=== PATIENT | female | born 1960 ===

== ENCOUNTER 2017-09-08 17:52 | Emergency (ER) | payer OTHER ==
[2017-09-08 17:52] VITALS: BMI 28.5
[2017-09-08 18:01] VITALS: BP 150/78; PULSE 64; RESP 18; TEMP 98.4; O2SAT 99
--- NOTE | 2017-09-08 18:17 | ED PDOC ---
HPI: General Adult Time Seen by Provider: 09/08/17 18:05 Chief Complaint (Nursing): Upper Extremity Problem/Injury Chief Complaint (Provider): Neck and Right breast pain History Per: Patient History/Exam Limitations: no limitations Onset/Duration Of Symptoms: Days Current Symptoms Are (Timing): Still Present Additional Complaint(s): 57 y/o female presents to the emergency department with right breast pain and redness to right nipple region for 5 days. Patient denies any active drainage or bleeding. No fever or chills. She also noticed mild pain to left side of neck which is relieved by Motrin. Patient denies trauma to neck. No associated headache, chest pain, shortness of breath, dizziness or vision changes. No fever or chills. PMD: [facility] Past Medical History Reviewed: Historical Data, Nursing Documentation, Vital Signs Vital Signs: Last Vital Signs Temp 98.4 F 09/08/17 17:59 Pulse 64 09/08/17 17:59 Resp 18 09/08/17 17:59 BP 150/78 09/08/17 17:59 Pulse Ox 99 09/08/17 18:42 - Medical History PMH: Hypercholesterolemia - Family History Family History: States: No Known Family Hx - Living Arrangements Living Arrangements: With Family - Social History Current smoker - smoking cessation education provided: No Alcohol: None Drugs: Denies - Home Medications Home Medications: Ambulatory Orders Medication Instructions Recorded Docusate [Colace] 100 mg PO TID PRN 08/10/15 Multivitamin [Ruby-Plus G] 1 cap PO DAILY 08/10/15 [id number]-2-[id number] Ethyl Esters [OMEGA 3] 1 / PO DAILY 08/10/15 Tramadol Hydrochloride [Tramadol] 100 mg PO Q6 PRN 08/10/15 Azithromycin [Zithromax] 250 mg PO DAILY #6 tab 01/08/17 Guaifenesin/Dextromethorphan 1 each PO Q12H #10 tab.er.12h 01/08/17 [Guaifenesin-Dm ER 1,200-60 mg] Ibuprofen [Motrin] 600 mg PO Q6 PRN #15 tab 09/08/17 Sulfamethoxazole/Trimethoprim 1 tab PO BID #14 tab 09/08/17 [Bactrim DS 800 mg-160 mg] - Allergies Allergies/Adverse Reactions: Allergies Allergy/AdvReac Type Severity Reaction Status Date / Time morphine Allergy DIZZINESS Verified 01/08/17 19:29 Review of Systems ROS Statement: Except As Marked, All Systems Reviewed And Found Negative Cardiovascular: Negative for: Chest Pain Musculoskeletal: Positive for: Neck Pain (denies any trauma, nonradiating pain) Skin: Positive for: Other (redness and pain to right breast) Neurological: Negative for: Headache, Dizziness Physical Exam - Reviewed Nursing Documentation Reviewed: Yes Vital Signs Reviewed: Yes - Physical Exam Appears: Positive for: Well, Non-toxic, No Acute Distress Head Exam: Positive for: ATRAUMATIC, NORMAL INSPECTION, NORMOCEPHALIC Skin: Positive for: Normal Color, Warm, Dry. Negative for: Rash Eye Exam: Positive for: Normal appearance Neck: Positive for: Normal, Pain On Movement Of Neck (slight pain with movement of neck, no step off or midline tenderness) Cardiovascular/Chest: Positive for: Other (Localized cellulitis to the right breast surrounding areola, no active drainage, no bleeding, no abscess or palpable masses, left breast wnl) Back: Positive for: Normal Inspection Extremity: Positive for: Normal ROM Neurologic/Psych: Positive for: Alert, Oriented (x3) - ECG O2 Sat by Pulse Oximetry: 99 (RA) Pulse Ox Interpretation: Normal Medical Decision Making Medical Decision Making: Time: 1810 Initial Impression: Neck pain, right breast cellulitis Initial Plan: --Motrin 600 mg PO Patient reports improvement in neck pain after Motrin dose given. Prescription given for Motrin and Bactrim. Patient has appointment this coming with clinic for follow-up. Scribe Attestation: Documented by Raissa Yee, acting as a scribe for Kaykay Hou PA-C. Provider Scribe Attestation: All medical record entries made by the Scribe were at my direction and personally dictated by me. I have reviewed the chart and agree that the record accurately reflects my personal performance of the history, physical exam, medical decision making, and the department course for this patient. I have also personally directed, reviewed, and agree with the discharge instructions and disposition. Disposition - Clinical Impression Clinical Impression: Neck pain, Cellulitis of breast - Patient ED Disposition Is Patient to be Admitted: No Counseled Patient/Family Regarding: Diagnosis, Need For Followup, Rx Given - Disposition Referrals: [facility] [Outside] Disposition: Routine/Home Disposition Time: 18:49 Condition: STABLE Additional Instructions: Take rx meds as directed. Follow up with clinic. Prescriptions: Ibuprofen [Motrin] 600 mg PO Q6 PRN #15 tab PRN Reason: Pain, Moderate (4-7) Sulfamethoxazole/Trimethoprim [Bactrim DS 800 mg-160 mg] 1 tab PO BID #14 tab Instructions: Cellulitis (ED), Cervical Sprain (ED) Forms: [employer] (Bulgarian) Print Language: TAJIK
== END 2017-09-08 19:00 | disposition home or self-care (01) ==
LOC: H.ER 17:52
DX: N61.0 Mastitis without abscess (principal); M54.2 Cervicalgia

== ENCOUNTER 2018-02-04 15:34 | Emergency (ER) | payer SELFPAY ==
[2018-02-04 15:34] VITALS: BMI 28.5
[2018-02-04 15:42] VITALS: BP 140/63; PULSE 70; RESP 18; TEMP 98.4; O2SAT 98
--- NOTE | 2018-02-04 16:35 | ED PDOC ---
HPI: CCC, URI, Sore Throat Time Seen by Provider: 02/04/18 15:44 Chief Complaint (Nursing): Flu-like Symptoms Chief Complaint (Provider): Throat pain, eye redness, cough History Per: Patient History/Exam Limitations: no limitations Have you had recent travel within the past 21 days to any of the following countries: [place], [place], [place] or [place]?: No Current Symptoms Are (Timing): Still Present Location Of Pain: Throat Sick Contacts (Context): Family Member(s) Associated Symptoms: Sore Throat, Cough Additional Complaint(s): 57 y/o female, presents to ER for evaluation of cough, throat pain and redness to bilateral eyes since yesterday. She states she had yellow discharge from left eye yesterday. She denies any fever or chills. Of note, patient states she had had positive sick contact at home. She has no other complaints. PCP: Adama Martin Past Medical History Reviewed: Historical Data, Nursing Documentation, Vital Signs Vital Signs: Last Vital Signs Temp 98.4 F 02/04/18 15:40 Pulse 70 02/04/18 15:40 Resp 18 02/04/18 15:40 BP 140/63 02/04/18 15:40 Pulse Ox 98 02/04/18 16:40 - Medical History PMH: Anemia, Hypercholesterolemia - Surgical History Surgical History: No Surg Hx - Family History Family History: States: No Known Family Hx - Living Arrangements Living Arrangements: With Family - Social History Current smoker - smoking cessation education provided: No Alcohol: None Drugs: Denies - Home Medications Home Medications: Ambulatory Orders Medication Instructions Recorded Docusate [Colace] 100 mg PO TID PRN 08/10/15 Multivitamin [Ruby-Plus G] 1 cap PO DAILY 08/10/15 [id number] Ethyl Esters [OMEGA 3] 1 / PO DAILY 08/10/15 Tramadol Hydrochloride [Tramadol] 100 mg PO Q6 PRN 08/10/15 Azithromycin [Zithromax] 250 mg PO DAILY #6 tab 01/08/17 Guaifenesin/Dextromethorphan 1 each PO Q12H #10 tab.er.12h 01/08/17 [Guaifenesin-Dm ER 1,200-60 mg] Ibuprofen [Motrin] 600 mg PO Q6 PRN #15 tab 09/08/17 Sulfamethoxazole/Trimethoprim 1 tab PO BID #14 tab 09/08/17 [Bactrim DS 800 mg-160 mg] Azithromycin [Zithromax] 250 mg PO DAILY #6 tab 02/04/18 Benzonatate 200 mg PO TID PRN #20 capsule 02/04/18 Tobramycin [Tobrex] 5 ml TOP QID #1 bottle 02/04/18 - Allergies Allergies/Adverse Reactions: Allergies Allergy/AdvReac Type Severity Reaction Status Date / Time morphine Allergy DIZZINESS Verified 01/08/17 19:29 Review of Systems ROS Statement: Except As Marked, All Systems Reviewed And Found Negative Constitutional: Negative for: Fever, Chills Eyes: Positive for: Redness (both eyes), Other (discharge from left eye) ENT: Positive for: Throat Pain, Throat Swelling Cardiovascular: Negative for: Chest Pain Respiratory: Positive for: Cough (dry) Gastrointestinal: Negative for: Nausea, Vomiting Neurological: Negative for: Headache, Dizziness Physical Exam - Reviewed Nursing Documentation Reviewed: Yes Vital Signs Reviewed: Yes - Physical Exam Appears: Positive for: Non-toxic, No Acute Distress Head Exam: Positive for: ATRAUMATIC, NORMAL INSPECTION, NORMOCEPHALIC Skin: Positive for: Normal Color. Negative for: Rash Eye Exam: Positive for: EOMI, PERRL, Conjunctival injection (both eyes). Negative for: Normal appearance, Nystagmus, Periorbital swelling, Periorbital tenderness, Scleral icterus ENT: Positive for: Pharyngeal Erythema, Tonsillar Exudate (bilateral), Tonsillar Swelling Neck: Positive for: Painless ROM Cardiovascular/Chest: Positive for: Regular Rate, Rhythm Respiratory: Positive for: Normal Breath Sounds. Negative for: Respiratory Distress Extremity: Positive for: Normal ROM Lymphatic: Positive for: Adenopathy (bilateral anterior cervical LAD) Neurologic/Psych: Positive for: Alert, Oriented. Negative for: Motor/Sensory Deficits - ECG O2 Sat by Pulse Oximetry: 98 (RA) Pulse Ox Interpretation: Normal Medical Decision Making Medical Decision Making: Impression: Conjunctivitis, URI Plan: -- Tylenol 650 mg PO Patient to be discharged home with Zithromax, Tessalon Perles and Tobramycin ophthalmic drops. Patient informed to complete the entire course of antibiotics and to follow up with PCP in 2-3 days. Scribe Attestation: Documented by Michelle Velez acting as a scribe for WINSOME Varner Provider Attestation: All medical record entries made by the Scribe were at my direction and personally dictated by me. I have reviewed the chart and agree that the record accurately reflects my personal performance of the history, physical exam, medical decision making, and the department course for this patient. I have also personally directed, reviewed, and agree with the discharge instructions and disposition. Disposition - Clinical Impression Clinical Impression: Upper respiratory infection, Conjunctivitis - Patient ED Disposition Is Patient to be Admitted: No Counseled Patient/Family Regarding: Studies Performed, Diagnosis, Need For Followup, Rx Given - Disposition Referrals: [facility] [Outside] Disposition: Routine/Home Disposition Time: 16:52 Condition: STABLE Additional Instructions: Take prescription meds as directed. [id number] Tylenol or Advil for pain as needed. Follow up with clinic in 2-3 days. Prescriptions: Azithromycin [Zithromax] 250 mg PO DAILY #6 tab Benzonatate 200 mg PO TID PRN #20 capsule PRN Reason: Cough Tobramycin [Tobrex] 5 ml TOP QID #1 bottle Instructions: Bacterial Upper Respiratory Infection, Adult, Conjunctivitis ( [place]key[place]) (DC) Forms: [employer] (Thai) Print Language: MONGOLIAN
== END 2018-02-04 17:42 | disposition home or self-care (01) ==
LOC: H.ER 15:34
DX: J06.9 Acute upper respiratory infection, unspecified (principal); H10.9 Unspecified conjunctivitis; E78.00 Pure hypercholesterolemia, unspecified

== ENCOUNTER 2018-04-07 09:04 | Emergency (ER) | payer SELFPAY ==
[2018-04-07 09:13] VITALS: BMI 25.8
[2018-04-07] MEDS ORDERED: Dexamethasone 4 mg/1 ml IM STA (09:46)
--- NOTE | 2018-04-07 10:23 | ED PDOC ---
HPI: CCC, URI, Sore Throat Time Seen by Provider: 04/07/18 09:34 Chief Complaint (Nursing): ENT Problem Chief Complaint (Provider): sore throat History Per: Patient History/Exam Limitations: no limitations Onset/Duration Of Symptoms: Days (x3) Current Symptoms Are (Timing): Still Present Location Of Pain: Throat Associated Symptoms: Fever, Sore Throat, Other (headache). denies: Nausea, Vomiting, Diarrhea Ear Symptoms: Bilateral: None Additional Complaint(s): Loils Bedoya is a 57 year old female, with no significant past medical history, who presents to the emergency department complaining of a severe sore throat for x3 days associated with fever and headache onset for x2 days. Patient states pain is worst when she is eating. Patient took Advil yesterday with no relief, she did not take medications today. She denies any chest pain, shortness of breath, nausea, vomit, diarrhea or abdominal pain. No further medical complaints. PMD: Clinic Past Medical History Reviewed: Historical Data, Nursing Documentation, Vital Signs Vital Signs: Last Vital Signs Temp 100.3 F H 04/07/18 11:40 Pulse 91 H 04/07/18 11:40 Resp 18 04/07/18 11:40 BP 105/67 04/07/18 11:40 Pulse Ox 95 04/07/18 12:19 - Medical History PMH: Anemia, Hypercholesterolemia Denies: HIV, Chronic Kidney Disease - Surgical History Surgical History: Cholecystectomy - Family History Family History: States: Unknown Family Hx - Social History Current smoker - smoking cessation education provided: No Alcohol: None Drugs: Denies - Home Medications Home Medications: Ambulatory Orders Medication Instructions Recorded Docusate [Colace] 100 mg PO TID PRN 08/10/15 Multivitamin [Ruby-Plus G] 1 cap PO DAILY 08/10/15 Maxla-8-Zben Ethyl Esters [OMEGA 3] 1 / PO DAILY 08/10/15 Tramadol Hydrochloride [Tramadol] 100 mg PO Q6 PRN 08/10/15 Azithromycin [Zithromax] 250 mg PO DAILY #6 tab 01/08/17 Guaifenesin/Dextromethorphan 1 each PO Q12H #10 tab.er.12h 01/08/17 [Guaifenesin-Dm ER 1,200-60 mg] Ibuprofen [Motrin] 600 mg PO Q6 PRN #15 tab 09/08/17 Sulfamethoxazole/Trimethoprim 1 tab PO BID #14 tab 09/08/17 [Bactrim DS 800 mg-160 mg] Azithromycin [Zithromax] 250 mg PO DAILY #6 tab 02/04/18 Benzonatate 200 mg PO TID PRN #20 capsule 02/04/18 Tobramycin [Tobrex] 5 ml TOP QID #1 bottle 02/04/18 Amoxicillin 875 mg PO BID #20 tablet 04/07/18 Ibuprofen [Motrin] 600 mg PO Q6 PRN #20 tab 04/07/18 - Allergies Allergies/Adverse Reactions: Allergies Allergy/AdvReac Type Severity Reaction Status Date / Time morphine Allergy DIZZINESS Verified 04/07/18 09:24 Review of Systems ROS Statement: Except As Marked, All Systems Reviewed And Found Negative Constitutional: Positive for: Fever ENT: Positive for: Throat Pain Cardiovascular: Negative for: Chest Pain Respiratory: Negative for: Shortness of Breath Gastrointestinal: Negative for: Nausea, Vomiting, Abdominal Pain, Diarrhea Neurological: Positive for: Headache Physical Exam - Reviewed Nursing Documentation Reviewed: Yes Vital Signs Reviewed: Yes - Physical Exam Appears: Positive for: Non-toxic, No Acute Distress Head Exam: Positive for: ATRAUMATIC, NORMOCEPHALIC Skin: Positive for: Normal Color, Warm, Dry Eye Exam: Positive for: Normal appearance, EOMI, PERRL ENT: Positive for: Tonsillar Exudate (mild white), Tonsillar Swelling ( tonsillar erythema, b/l enlarged and symmetric). Negative for: Other (No peritonsillar abscess) Neck: Positive for: Painless ROM, Supple Cardiovascular/Chest: Positive for: Regular Rate, Rhythm. Negative for: Murmur Respiratory: Positive for: Normal Breath Sounds. Negative for: Respiratory Distress Extremity: Positive for: Normal ROM (upper and lower extremities). Negative for : Deformity, Swelling Lymphatic: Positive for: Adenopathy (anterior cervical lymphadenopathy) Neurologic/Psych: Positive for: Alert, Oriented. Negative for: Motor/Sensory Deficits - ECG O2 Sat by Pulse Oximetry: 95 (RA) Pulse Ox Interpretation: Normal - Progress Re-evaluation Time: 12:08 Condition: Re-examined, Improved Medical Decision Making Medical Decision Making: Initial Impression: Sore throat. Differential includes: pharyngitis, tonsillitis. Viral vs strep. Initial Plan: --Decadron Inj 10 mg IM --Tylenol 325mg tab 650 mg PO --Ultram 50 mg PO --Rapid Strep Group A Antigen --Reevaluation 12:00 -Positive strep Scribe Attestation: Documented by Fito Lea, acting as a scribe for Mala Tan MD Provider Scribe Attestation: All medical record entries made by the Scribe were at my direction and personally dictated by me. I have reviewed the chart and agree that the record accurately reflects my personal performance of the history, physical exam, medical decision making, and the department course for this patient. I have also personally directed, reviewed, and agree with the discharge instructions and disposition. Disposition - Clinical Impression Clinical Impression: Strep pharyngitis - Patient ED Disposition Is Patient to be Admitted: No Doctor Will See Patient In The: Office Counseled Patient/Family Regarding: Studies Performed, Diagnosis, Need For Followup - Disposition Referrals: [facility] [Outside] Disposition: Routine/Home Disposition Time: 12:08 Condition: GOOD Additional Instructions: Take your medications as instructed. Follow up with your PCP in 2-3 days. Return for worsening. Prescriptions: Amoxicillin 875 mg PO BID #20 tablet Ibuprofen [Motrin] 600 mg PO Q6 PRN #20 tab PRN Reason: Pain, Moderate (4-7) Instructions: Strep Throat (DC) Print Language: KOREAN
[2018-04-07 11:41] VITALS: RESP 18
[2018-04-07 12:33] VITALS: BP 110/78; PULSE 78; TEMP 98.9; O2SAT 99
== END 2018-04-07 12:33 | disposition home or self-care (01) ==
LOC: H.ER 09:04
DX: J02.0 Streptococcal pharyngitis (principal); E78.00 Pure hypercholesterolemia, unspecified
CPT/HCPCS: 87430; 96372; 99283; J1100